=== PATIENT | male | born 1980 | race Caucasian/White ===

== ENCOUNTER 2022-09-25 15:12 | Emergency (ER) | payer OTHER, SELFPAY ==
[2022-09-25] VITALS (44 sets, daily range): BP systolic 145–170; BP diastolic 81–119; PULSE 80–111; RESP 11–29; TEMP 36.9; O2SAT 81–100
--- NOTE | 2022-09-25 15:00 | RT.EKG_ITS ---
APPROVED REPORT Exam: Resting ECG Reason for Exam: chest pain Patient Location: E HR:84 bpm ECG Measurements Heart Rate 84 AXIS SD 148 P 15 QRSd 86 QRS 31 QT 357 T 12 QTc 423 Conclusion Sinus rhythm...normal P axis, V-rate 60- 99 Question anterior infarct, acute...ST >0.15mV, upright T, V2-V5
--- NOTE | 2022-09-25 15:00 | DI.RAD_ITS ---
Exam(s) XR PORTABLE CHEST AP EXAM: XR PORTABLE CHEST AP CLINICAL HISTORY: chest pain TECHNIQUE: 2D digital imaging was performed. COMPARISON: No exams were available for comparison FINDINGS: Multiple leads overlie the chest. LUNGS: Clear. No pleural abnormality seen. HEART: Normal size. AORTA: Normal diameter. BONES: Unremarkable for age. Soft tissues: Unremarkable. IMPRESSION: No acute findings. DATA REPOSITORY: RADIATION DOSE DELIVERED:
--- NOTE | 2022-09-25 15:15 | RT.EKG_ITS ---
APPROVED REPORT Exam: Resting ECG Reason for Exam: chest pain Patient Location: E HR:89 bpm ECG Measurements Heart Rate 89 AXIS MI 149 P 33 QRSd 84 QRS 19 QT 362 T 12 QTc 440 Conclusion Sinus rhythm...normal P axis, V-rate 60- 99 Probable left atrial enlargement...P >50mS, <-0.10mV V1 ST elevation, consider anterior injury...ST >0.15mV, V1-V5
--- NOTE | 2022-09-25 15:30 | ED.GENADUL_ITS ---
Discharge Plan Disposition Patient Disposition: Transfer-Acute Inpatient Care Specific Acute Inpt Facility: [facility] Condition: Serious Discharge Details Clinical Impression: ST elevation (STEMI) myocardial infarction Primary Care Provider: Faith,Local ED Provider: Eber Naranjo Home Meds and New Rx's Prescriptions: No Action omeprazole 40 mg Capsule,Delayed Release(Dr/Ec) 40 mg PO QDAY amlodipine 10 mg Tablet 10 mg PO QDAY hydroxyzine HCl 10 mg Tablet 10 mg PO BID Victoza 2-Kunal 0.6 mg/0.1 mL (18 mg/3 mL) Pen Injector 0.6 mg SUBCUT QWEEK Medical Decision Making This is a 41-year-old male who lives in the town of [facility] [place]. He is a type II diabetic who smokes 1 pack/day and has a family history of coronary artery disease. He has been in the local area for work. He notes after he eating dinner last night he developed upper chest discomfort that radiates to his left arm. Its been constant and worsened throughout the day today which resulted in him calling EMS. Patient was transported to the ER after prehospital EKG showed question of acute ST segment elevation primarily in lead V2. In the prehospital setting patient was given 324 mg of aspirin and started on a nitroglycerin drip after a single sublingual nitroglycerin. He arrives with nitroglycerin at 10 mics per hour. Patient states to me he has had pain similar to this before with an unremarkable cardiac work-up. He arrives hypertensive with a blood pressure 163/103, pulse approximately 100, oxygenating 100% on room air. Upon arrival the patient EKG obtained at [address] segment elevation primarily in V2. Repeat EKG obtained at [address] elevation but more consistent with early repolarization pattern. Patient placed on a quality assurance monitor final and laboratories obtained. A request for medical records was sent to the patient's home hospital [facility] in [facility] Chest x-ray, no acute findings. Patient's initial troponin is 436. Third EKG shows persistent ST elevation primarily in V2. Case was discussed with [facility] who are unable to accept in transfer due to capacity issues. There was difficulty in accessing outplacement consultant at [facility], the case is discussed with cardiology at [facility], Dr. Galeas. Patient has had some progression of symptoms and his EKG at [address] segment elevation. Given this, patient was consented for thrombolytics. We will continue heparin. Dr. Galeas asked that we hold the Plavix. The patient is stable at this time. The patients sister Brigette Nascimento, asked that she receive a call following his transfer. Her number is [phone] [facility] General Mode of arrival: EMS . Date/Time Provider Initiated Documentation: 09/25/22 15:13 . Limitations to Documentation: no limitations . Information obtained by: patient and EMS . History of Present Illness 41 year old M presents to the emergency department with the chief complaint of Chest pain going to left arm since last night, described as moderate, Quality is described as dull and constant, and is localized to the chest, left and upper extremity. Patient started experiencing this hour(s) and it has been constant. No relieving factors improve symptom(s), No exacerbating factors reported . Patient notes other (Notes some burning epigastric pain); denies shortness of breath and syncope. Patient did receive the following treatments prior to arrival, Aspirin and other (Nitroglycerin) Related Data Home Medications Medication Instructions Recorded Confirmed amlodipine 10 mg tablet 10 mg PO QDAY 09/25/22 09/25/22 hydroxyzine HCl 10 mg tablet 10 mg PO BID 09/25/22 09/25/22 liraglutide 0.6 mg/0.1 mL (18 mg/3 0.6 mg subcut QWEEK 09/25/22 09/25/22 mL) subcutaneous pen injector (Victoza 2-Kunal) omeprazole 40 mg capsule,delayed 40 mg PO QDAY 09/25/22 09/25/22 release Allergies Allergy/AdvReac Type Severity Reaction Status Date / Time No Known Drug Allergies Allergy Unverified 09/25/22 15:33 Review of Systems Narrative: States he has had pain like this before with unremarkable cardiac work-up. Recently traveled from [facility]. PFSH All Active Problems (Updated 09/25/22 @ 17:35 by Eber Naranjo MD) ST elevation (STEMI) myocardial infarction (Acute) Social History Smoking/Tobacco Use Status: Current every day Tobacco Type: cigarettes Smoking risk assessment performed?: Yes Alcohol Intake: current Alcohol Intake frequency: holidays/special occasions only Alcohol type: beer Drug use: Occasionally Substance use type: marijuana Do you feel safe at home: Yes Do you feel safe in your relationship?: Yes Exam Narrative Exam Narrative: GEN: awake, alert, oriented 3. Pleasant, well groomed, interactive. HEAD: Normocephalic, atraumatic ENT: Mucous membranes moist, oropharynx unremarkable, External ear exam unremarkable EYES: PERRL, EOMI NECK: Full ROM, no JACK, no menigismus CHEST/RESP: Nontender, clear to auscultation bilateral, no wheeze/rhonchi/rales CARDIOVASCULAR: RRR, no murmur, rub izaiah. 2+ Rad pulse bilateral ABDOMEN: Soft, nontender, no mass. +Bowel sounds EXT: Full ROM, no edema, no rash Neuro: Grossly normal neurologic exam, conversant, interactive. Psych: Speech fluent, thoughts congruent, affect normal Critical Care Time Critical Care Time Critical Care Time: Yes Total Critical Care Time: 30 Attestation: Bedside management, discussion with consultants.
[2022-09-25 15:32] LABS: Abs Immature Grans 0.03 10^3/uL (0.0-0.06); Absolute Basophil Count 0.05 10^3/uL (0.0-0.2); Absolute Eosinophil Count 0.14 10^3/uL (0.0-0.7); Absolute Lymphocyte Count 3.38 10^3/uL (1.2-3.4); Absolute Monocyte Count 0.85 10^3/uL (0.1-0.8); Absolute Neutrophil Count 6.41 10^3/uL (1.2-6.7); Basophils % 0.5; Eosinophils % 1.3; HGB 15.6 g/dL (13.5-17.5); Immature Grans % 0.3; Lymphocytes % 31.1; MCH 28.4 pg (27.0-33.0); MCHC 34.7 % (32.0-36.0); MCV 82 fL (80-95); MPV 9.3 fL (8.0-11.0); Monocytes % 7.8; Platelet Count 263 10^3/uL (130-400); RBC 5.49 10^6/uL (4.36-5.78); RDW 12.2 % (11.8-14.1); RDW-SD 36.7 fL; WBC 10.86 10^3/uL (4.4-10.8)
[2022-09-25] MEDS: MORPHine 4 MG/ML SYR IVP ×2 (15:40→16:13)
[2022-09-25] MEDS: nitroGLYcerin in D5W 50 MG/250 ML BTL IV (15:44)
[2022-09-25 15:47] LABS: INR 0.9 (0.9-1.1); PTT Activated 24.4 sec (21.5-31.9); Prothrombin Time 9.5 sec (9.3-11.0)
[2022-09-25 16:13] LABS: ALT 29 U/L (16-63); AST 15 U/L (15-37); Albumin 4.1 g/dL (3.4-5.0); Alkaline Phosphatase 83 U/L (46-116); Anion Gap 13.1 mmol/L (3-11); BUN 15 mg/dL (7-18); Bilirubin, Total 0.7 mg/dL (0.2-1.0); CO2 23.9 mmol/L (21.0-32.0); CREATININE 1.1 mg/dL (0.70-1.30); Calcium 9.1 mg/dL (8.5-10.1); Chloride 98 mmol/L (98-107); Estimated GFR 87.57 (mL/min/1.73m2); Glucose 363 mg/dL (74-106); Magnesium 1.8 mg/dL (1.8-2.4); Potassium 3.6 mmol/L (3.5-5.1); Sodium 135 mmol/L (136-145); Total Protein 7.6 g/dL (6.4-8.2)
--- NOTE | 2022-09-25 16:15 | RT.EKG_ITS ---
APPROVED REPORT Exam: Resting ECG Reason for Exam: chest pain Patient Location: E HR:87 bpm ECG Measurements Heart Rate 87 AXIS TX 149 P 39 QRSd 88 QRS 18 QT 362 T 2 QTc 436 Conclusion Sinus rhythm...normal P axis, V-rate 60- 99 Probable left atrial enlargement...P >50mS, <-0.10mV V1 ST elevation, consider anterolateral injury...ST >0.15mV, I aVL V2-V6
[2022-09-25 16:18] LABS: Troponin I 436 ng/L (<or=60)
[2022-09-25 16:40] LABS: D-Dimer 189 ng/mlFEU (<500)
[2022-09-25] MEDS: Tenecteplase 50 MG KIT IVP (17:24)
--- NOTE | 2022-09-25 18:24 | NUR.NOTE ---
Nursing Note: this nurse has attempted to give nurse to nurse report to the [facility] ED multiple times, was put on hold and hung up on, tried to call back multiple times with no answer. report was given to ambulance personael and transport nurse.
--- NOTE | 2022-09-25 21:33 | NUR.NOTE ---
Nursing Note: Patient transported via ambulance to [facility] with this RN and cloth sponger at bedside. Nitro drip monitoring and titrated by this RN, pain medication given by cloth sponger. see cloth sponger charting for further documentation. Patient remained vitally stable throughout transport. Bedside report given to [facility] JANNETTE Sanchez.
== END 2022-09-25 17:55 | disposition short-term general hospital (02) ==
PROVIDERS: Emergency Provider Emergency Medicine
DX: I21.3 ST elevation (STEMI) myocardial infarction of unspecified site (principal); E11.9 Type 2 diabetes mellitus without complications; I10 Essential (primary) hypertension
CPT/HCPCS: 80053; 93005; 96365; 96366; 96375; 99291; 71045; 83735; 84484; 85025; 85379; 85610; 85730; 93010; J2270; J3101